=== PATIENT | female | born 1980 | race Caucasian/White ===

== ENCOUNTER 2017-08-14 20:20 | Emergency (ER) | payer OTHER, MEDICAID | END 2017-08-14 22:00 | disposition home or self-care (01) | LOC: E/R 22:00 → FTE 20:20 | DX: J02.9 Acute pharyngitis, unspecified (principal) | CPT/HCPCS: 99283; Z7502 ==

== ENCOUNTER 2018-08-01 12:43 | Emergency (ER) | payer SELFPAY, OTHER | END 2018-08-01 14:34 | disposition home or self-care (01) | LOC: FTE 12:43 | DX: J06.9 Acute upper respiratory infection, unspecified (principal) | CPT/HCPCS: 99282 ==

== ENCOUNTER 2018-12-24 08:24 | Emergency (ER) | payer SELFPAY ==
[2018-12-24] MEDS: DIAZEPAM 5 MG TAB PO (09:11)
[2018-12-24] MEDS: DEXAMETHASONE 10 MG/ML 1 ML INJ IM (09:19)
[2018-12-24] MEDS: KETOROLAC 60 MG INJ IM (09:19)
== END 2018-12-24 09:28 | disposition home or self-care (01) ==
LOC: FTE 08:24
DX: M54.9 Dorsalgia, unspecified (principal); I10 Essential (primary) hypertension
CPT/HCPCS: 81025; 96372; 99284-25